=== PATIENT | male | born 1970 | race Caucasian/White ===

== ENCOUNTER 2019-01-27 06:34 | Emergency (ER) | payer SELFPAY ==
[~2019-01-27] VITALS: Ht 182.9 cm; Wt 149.7 kg
--- NOTE | 2019-01-27 07:08 | PHYS DOC ---
Past Medical History Past Medical History: Hypertension Adult General Chief Complaint Chief Complaint: SHOULDER PAIN HPI HPI Patient is a 48 year old right-handed male who presents with complaining of pain in right shoulder. Patient complaining of pain to starting from the right side of his neck with radiation to shoulder and oriented to be done today elbow with numbness of right thumb for the last 3 weeks as a constant sharp pain that getting worse for the last 3 days. Patient stated the pain getting worse with movement and denies injury or overusing his arm. Patient did not seek medical attention for his pain and states he took 800 mg ibuprofen without improvement of his pain. Patient states he was seen by a clinic last week and had elevation of blood pressure and was advised to lose weight for improvement of his blood pressure. Review of Systems Review of Systems Constitutional: Denies fever or chills [] Eyes: Denies change in visual acuity, redness, or eye pain [] HENT: Denies nasal congestion or sore throat [] Respiratory: Denies cough or shortness of breath [] Cardiovascular: No additional information not addressed in HPI [] GI: Denies abdominal pain, nausea, vomiting, bloody stools or diarrhea [] : Denies dysuria or hematuria [] Musculoskeletal: Denies back pain, reports joint pain [] Integument: Denies rash or skin lesions [] Neurologic: Denies headache, focal weakness or sensory changes [] Endocrine: Denies polyuria or polydipsia [] All other systems were reviewed and found to be within normal limits, except as documented in this note. Current Medications Current Medications Current Medications Medications (Trade) Dose Ordered Sig/Ofelia Start Time Stop Time Status Last Admin Dose Admin Clonidine HCl (Catapres) 0.1 mg 1X ONCE 01/27/19 07:15 01/27/19 07:16 DC 01/27/19 07:08 0.1 MG Allergies Allergies Allergies Coded Allergies Type Severity Reaction Last Updated Verified No Known Drug Allergies 01/27/19 No Physical Exam Physical Exam Constitutional: Well developed, well nourished, mild distress, non-toxic appearance, morbidly obese. [] HENT: Normocephalic, atraumatic. Eyes: PERRLA, EOMI, conjunctiva normal, no discharge. [] Neck: Normal range of motion, no tenderness, supple, no stridor. [] Cardiovascular:Heart rate regular rhythm, no murmur [] Lungs & Thorax: Bilateral breath sounds clear to auscultation [] Skin: Warm, dry, no erythema, no rash. [] Back: No tenderness, no CVA tenderness. [] Extremities: Right shoulder without deformity, normal range of motion, no tenderness, subjective decrease of sensation in right thumb. Neurologic: Alert and oriented X 3, normal motor function, no focal deficits noted. [] Psychologic: Affect normal, judgement normal, mood normal. [] Current Patient Data Vital Signs Vital Signs Date Time Temp Pulse Resp B/P (MAP) Pulse Ox O2 Delivery O2 Flow Rate FiO2 01/27/19 07:42 86 16 166/101 (122) 96 Room Air 01/27/19 06:46 97.8 97.8 EKG EKG [] Radiology/Procedures Radiology/Procedures [] Course & Med Decision Making Course & Med Decision Making Evaluation of patient in ER showed 48-year-old right-handed male with complaining of cervical radiculopathy pain of right upper extremity for 3 weeks. Patient had blood pressure of 185/115 at arrival to ER with diagnose of hypertension one week ago without starting medication. Patient treated with clonidine with improvement of blood pressure to 153/86 . Patient was advised to follow-up with the primary care physician for possible MRI of cervical spine. Dragon Disclaimer Dragon Disclaimer This electronic medical record was generated, in whole or in part, using a voice recognition dictation system. Departure Departure Impression: Primary Impression: Cervical radiculopathy Additional Impressions: Uncontrolled hypertension Morbid obesity with BMI of 40.0-44.9, adult Disposition: HOME, SELF-CARE (at 0740) Condition: STABLE Patient Instructions: Cervical Radiculopathy, Form - Blood Pressure Record Sheet, How to Take Your Blood Pressure, [id number], Managing Your High Blood Pressure Additional Instructions: Continue home ibuprofen Follow-up with your primary care physician in 3-5 days for elevation of blood pressure and possible referral for MRI of neck Return to ER if not getting better Scripts Tramadol Hcl (ULTRAM) 50 Mg Tablet 50 MG PO Q6HRS PRN for PAIN, #14 TAB 0 Refills Prov: WILD LUTHER MD 01/27/19 Prednisone (PREDNISONE) 50 Mg Tablet 1 TAB PO DAILY, #5 TAB Prov: WILD LUTHER MD 01/27/19 Cyclobenzaprine Hcl (CYCLOBENZAPRINE HCL) 10 Mg Tablet 1 TAB PO TID, #21 TAB Prov: WILD LUTHER MD 01/27/19 Lisinopril (LISINOPRIL) 10 Mg Tablet 1 TAB PO DAILY, #30 TAB 0 Refills Prov: WILD LUTHER MD 01/27/19 Problem Qualifiers WILD LUTHER MD Jan 27, 2019 07:08
[2019-01-27] MEDS ORDERED: cloNIDine HCL 0.1 MG TABLET PO ONE (07:15)
[2019-01-27] MEDS ORDERED: CYCL10TA2 PO (07:44)
[2019-01-27] MEDS ORDERED: TRAM-48 PO (07:44)
[2019-01-27] MEDS ORDERED: LISI10TA2 PO (07:44)
[2019-01-27] MEDS ORDERED: PRED50TA PO (07:44)
[2019-01-27 08:05] VITALS: BP 149/86
== END 2019-01-27 08:15 | disposition home or self-care (01) ==
LOC: ER 06:34
DX: M54.12 Radiculopathy, cervical region (principal); I10 Essential (primary) hypertension; M25.511 Pain in right shoulder; E66.01 Morbid (severe) obesity due to excess calories; Z68.41 Body mass index [BMI] 40.0-44.9, adult
CPT/HCPCS: 99283